=== PATIENT | male | born 1990 | race Caucasian/White ===

== ENCOUNTER 2018-03-30 21:34 | Emergency (ER) | payer SELFPAY ==
[2018-03-30] MEDS ORDERED: IBUPROFEN 400 MG TAB ONE (22:50)
[2018-03-30] MEDS ORDERED: IBUPROFEN 200 MG TAB PO ONE (22:50)
[2018-03-30] MEDS ORDERED: HYDROCODONE/APAP 5/325 MG TAB ONE (22:50)
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
[2018-03-31] MEDS ORDERED: ONDANSETRON 4 MG (ODT) TAB ONE (00:49)
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
== END 2018-03-31 01:14 | disposition home or self-care (01) ==
LOC: ER 21:34
DX: S39.012A Strain of muscle, fascia and tendon of lower back, initial encounter (principal); S39.013A Strain of muscle, fascia and tendon of pelvis, initial encounter; V03.99XA Pedestrian with other conveyance injured in collision with car, pick-up truck or van, unspecified whether traffic or nontraffic accident, initial encounter; F17.210 Nicotine dependence, cigarettes, uncomplicated
CPT/HCPCS: 72100; 72170; 99284